=== PATIENT | female | born 1980 | race Caucasian/White ===

== ENCOUNTER 2022-02-16 19:30 | Emergency (ER) | payer MEDICAID ==
[~2022-02-16] VITALS: Ht 157.5 cm; Wt 90.9 kg
[~2022-02-16 19:30] MED LIST: ASCO125T; FERR256T; OMEG1CAP12 PO; PNV#1COM7 PO; PREN1TAB26 PO
[2022-02-16 19:57] LABS: BASOPHILS % (AUTO) 0.3 % (0.0-2.0); EOSINOPHILS % (AUTO) 0.4 % (1.0-6.0); HEMATOCRIT 41.2 % (36-46); HEMOGLOBIN 13.3 g/dL (12.0-16.0); LYMPHOCYTES # (AUTO) 0.4 K/uL (1.0-4.8); LYMPHOCYTES % (AUTO) 5.3 % (22.0-44.0); MEAN CORPUSCULAR HEMOGLOBIN 25.6 pg (26.0-34.0); MEAN CORPUSCULAR HGB CONC 32.4 G/dL (31.0-37.0); MEAN CORPUSCULAR VOLUME 79 fL (80-100); MONOCYTES # (AUTO) 0.3 K/uL (0.1-1.0); MONOCYTES % (AUTO) 3.9 % (2.0-9.0); NEUTROPHILS # (AUTO) 7.6 K/uL (1.8-7.7); PLATELET COUNT (AUTO) 343 K/uL (150-450); RED BLOOD CELL COUNT(AUTO) 5.21 MIL/uL (4.00-5.20); RED CELL DISTRIBUTION WIDTH 15.4 % (11.5-14.5)
[2022-02-16 19:59] LABS: NEUTROPHILS % (AUTO) 90.1 % (40.0-70.0)
[2022-02-16 20:05] LABS: ANION GAP 8 mmol/L (8-16); CARBON DIOXIDE 24 mmol/L (22-29); CHLORIDE 102 mmol/L (98-107); CREATININE 0.84 mg/dL (0.60-1.30); GLUCOSE,RANDOM 138 mg/dL (70-110); POTASSIUM 3.5 mmol/L (3.5-5.1); SODIUM SERUM 134 mmol/L (136-145); UREA NITROGEN, BLOOD 15 mg/dL (7-18)
[2022-02-16 20:06] LABS: GLOMERULAR FILTR. RATE CALC > 60 mL/min (>60)
[2022-02-16 20:16] LABS: ALANINE AMINOTRANSFERASE 16 U/L (12-78); ALKALINE PHOSPHATASE 145 U/L (46-116); ASPARTATE AMINOTRANSFERASE 18 U/L (15-37); BILIRUBIN,TOTAL 0.3 mg/dL (0.1-1.0); HCG,QUANTITATIVE < 1 mIU/mL (0-6); LIPASE 55 U/L (73-393); TOTAL PROTEIN, SERUM 9.3 g/dL (6.4-8.2)
[2022-02-16] MEDS: ONDANSETRON HCL 4 MG/2 ML VIAL IVP ONE (21:35)
[2022-02-16] MEDS: KETOROLAC TROMETHAMINE 30 MG/ML VIAL IVP ONE (21:35)
[2022-02-16] MEDS: MORPHINE SULFATE 4 MG/ML SYRINGE IVP ONE (21:35)
[2022-02-16] MEDS: SODIUM CHLORIDE 0.9% 1,000 ML IV ONE (21:35)
[2022-02-17 00:07] VITALS: BP 130/72
[2022-02-17] MEDS ORDERED: HYDR-4723 PO (00:13)
[2022-02-17] MEDS ORDERED: ONDA-104 PO (00:13)
[2022-02-17] MEDS ORDERED: MAG30ORA11 PO (00:13)
[2022-02-17] MEDS ORDERED: CEPH-558 PO (00:17)
== END 2022-02-17 00:34 | disposition home or self-care (01) ==
LOC: EMS 19:31
DX: K80.70 Calculus of gallbladder and bile duct without cholecystitis without obstruction (principal); K76.0 Fatty (change of) liver, not elsewhere classified; Z98.890 Other specified postprocedural states
CPT/HCPCS: 99284; 96374; 76700; 96375; 96361; 80053; 83690; 84702; 85025; 36415; 81025; J1885; J2270; J2405; J7030